=== PATIENT | male | born 1980 | race African-American/Black ===

== ENCOUNTER 2020-07-24 12:02 | Emergency (ER) | payer MEDICAID ==
[~2020-07-24] VITALS: Ht 188 cm; Wt 78.0 kg
--- NOTE | 2020-07-24 12:15 | NUR ---
BIB [facility] FROM [facility]. 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 STRONG MARIJUANA SCENT. PT AMBULATED TO AMBULANCE WITH STEADY GAIT. PT AROUSABLE, A&OX4, THEN FALLS ASLEEP. PRECISION [facility]: BS 88 PT CONNECTED TO MONITORING. PT DENIES PAIN/TRAUMA. EKG COMPLETE. CALL LIGHT IN REACH.
--- NOTE | 2020-07-24 12:30 | NUR ---
PT TO BE MTF
[2020-07-24 13:13] VITALS: BP 100/58
--- NOTE | 2020-07-24 13:26 | NUR ---
PT CONTINUES TO ANSWER QUESTIONS AND THEN FALLS ASLEEP. PT RESTING COMFORTABLY ON GURNEY. RESP EVEN AND UNLABORED.
--- NOTE | 2020-07-24 14:54 | NUR ---
PT TO BE DC. PT REFUSING TO RESPOND WHEN TALKED TO. PT PULLING AWAY AND GRUNTED WHEN BEING DISCONNECTED FROM MONITORING. PT EARLIER MOVED TO EDGE OF [facility], URINATED ON FLOOR, THEN LAYED BACK DOWN. SECURITY CALL FOR ASSISTANCE, PT REFUSING TO GET UP. SECURITY CALLED [facility] FOR TRESSPASSING.
--- NOTE | 2020-07-24 15:18 | NUR ---
PT ESCORTED OUT BY [facility] IN HANDCUFFS. PT BELONGINGS TAKEN WELL.
== END 2020-07-24 15:20 | disposition home or self-care (01) ==
LOC: ED 15:14
DX: R41.82 Altered mental status, unspecified (principal); R94.31 Abnormal electrocardiogram [ECG] [EKG]
CPT/HCPCS: 93005; 99283